=== PATIENT | male | born 1960 | race Caucasian/White ===

== ENCOUNTER → 2019-04-29 | Day surgery (SDC) | payer OTHER ==
[2019-04-24 12:38] LABS: INR 1.27; PROTHROMBIN TIME 16.5 seconds (11.9-14.5)
[2019-04-24 12:39] LABS: PARTIAL THROMBOPLASTIN TIME 45.8 seconds (23.8-35.5)
[~2019-04-29] MED LIST: ABILIFY5 MG PO; AMIODARONE HCL200 MG PO; ASPIRIN EC81 MG PO; COMBIVENT RESPIM4 GM IH; CYMBALTA30 MG PO; FENTANYL CITRATE/PF 100MCG/2 ML INJ ONE; LEVAQUIN500 MG PO; LEVOTHYROXINE50 MCG PO; LISINOPRIL10 MG PO; LOPRESSOR25 MG PO; METOPROLOL TART25 MG PO; MIDAZOLAM HCL 2 MG/2 ML VIAL ONE; OR PHACO EYE KIT ONE; PEPCID20 MG PO; PREOP PHACO EYE KIT ONE; PRISTIQ ER100 MG PO; XARELTO10 MG PO
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
--- OUTSIDE RECORDS SUMMARY | 2019-04-29 11:54 | XMS REPORT ---
Author Author [facility] Address Unknown Phone Unavailable Care Team Providers Care Talkback Host Name Role Phone Jaiden VASQUEZ Unavailable Unavailable Problems This patient has no known problems. Allergies, Adverse Reactions, Alerts This patient has no known allergies or adverse reactions. Medications This patient has no known medications. Results Test Description Test Time Test Comments Text Results Atomic Results Result Comments CHEST SINGLE (PORTABLE) [place] [address] Patient Name: SULEMAN MIRZA MR #: [id number] : 1960 Age/Sex: 57/M Req #: [id number] Adm Physician: Ordered by: DYLAN VASQUEZ MD Report #: [id number] Location: ER Room/Bed: Procedure: [id number] DX/CHEST SINGLE (PORTABLE) Exam Date: 07/13/17 Exam Time: 0825 REPORT STATUS: Signed PROCEDURE: A single AP view of the chest. COMPARISON: Portable chest 12/22/2016. INDICATIONS: SOB, CHEST PAIN FINDINGS: Lines/tubes: Right subclavian tunneled chest port with tip projecting over the expected region of the superior vena cava. Lungs: No parenchymal mass. Bibasilar atelectasis. Pleura: There is no pleural effusion or pneumothorax. Heart and mediastinum: The heart and the mediastinum are unremarkable. Bones: No acute bony abnormality. Degenerative changes of the thoracic spine. IMPRESSION: No acute radiographic abnormality. Dictated by: Linda Burnette M.D. on 07/13/2017 at 9:23 Electronically approved by: Linda Burnette M.D. on 07/13/2017 at 9:23 Dictated By: LINDA BURNETTE MD 2 Transcribed By: KACY on 07/13/17922 COPY TO: DYLAN VASQUEZ MD
--- OUTSIDE RECORDS SUMMARY | 2019-04-29 11:54 | XMS REPORT | Encounter Summary ---
Author Organization Unknown Address [address] [place] [address] Phone [phone] Care Team Providers Care Pie Bakery Laborer Name Role Phone Dr. Catarino Haddad 3 [phone] Reynaldo Florez MD 82 [phone] George Tong MD 111 [phone] Sebas Levin MD 115 [phone] Reason for Visit other - see typed reason Instructions 1. Pre-surgery evaluation 2. Cataract of right eye 3. Atrial fibrillation electrocardiogram 4. Body mass index 20-24 - normal 5. Anxiety diazepam 5 mg tablet 6. Essential hypertension CMP, serum or plasma CBC w/ auto diff TSH, serum or plasma Discussion Note: None recorded. Patient educational handouts: No information available. Plan of Care Reminders Provider Appointments Return to Office on or around 10/08/2019 Mayra Feliciano MD Lab CMP, Serum or Plasma 04/07/2019 [facility] CBC W/ Auto Diff 04/07/2019 [facility] TSH, Serum or Plasma 04/07/2019 [facility] Referral None recorded. Procedures None recorded. Surgeries None recorded. Imaging Electrocardiogram 04/07/2019 [facility] ([facility] Medications Name Start Date diazepam 5 mg [...] BMI Blood Pressure 5 ft 11 in 157 lbs 21.9 kg/m2 137/80 mm[Hg] Lab Results None recorded. Allergies Code Code System Name Reaction Severity Status Onset NKDA Problems Name Status Onset Date Source History of Malignant Neoplasm of Lung Active 10/25/2014 Viral Hepatitis C Active 02/01/2017 Anxiety Active 02/01/2017 Atrial Fibrillation Active 02/01/2017 Hydrocele Active 02/01/2017 History of Tobacco Use Active 02/01/2017 Essential Hypertension Active 06/12/2017 Procedures Date Name Performed by 05/11/2016 Cataract Surgery Complex Information not available 09/10/2014 Cancer Surgery Information not available 03/30/2014 Egd Information not available 03/30/2014 Colonoscopy Information not available 04/07/2019 Electrocardiogram [facility] ([facility]) [facility] [address] [place] [address] (Work Place) Vaccine List Vaccine Type Tdap 06/15/2015 Social History Tobacco Smoking Status Former Smoker (3+ PPD) Past Encounters 04/07/2019 Pre-surgery Evaluation; Cataract of Right Eye; Atrial Fibrillation; Body Mass Index 20-24 - Normal; Anxiety; Essential Hypertension Mayra Feliciano MD: [address] [place] [address], Ph. History of Present Illness Note:59yo male presents for evaluation of pre-op clearance for cataract surgery on right eye with Dr George Tong. Had left eye cataract surgery two years ago. Has been doing well since last visit 01/14/19. Keeping busy taking care of .< div>
</div><div>Since last visit, saw oncologist, Dr Fiore on 03/17/19 for hx of lung cancer. Consult note reviewed. Hx of right-sided lung cancer - had resection of two tumors 10/25/14. Still has ashley-cath. </div><div>
</div><div >Previously:</div><div>Pt continues Cymbalta 30mg bid. Doing well mood-zacarias. Pt gets out most days for exercise with walking & biking.<div>
</div><div> Since last visit, pt saw acquisitions librarian, Dr Florez in Oct & his lisinopril 10mg qd was decreased to half a tablet per day for htn. Home bp in 110/65 usually. Still taking Xarelto for Afib. Rtn visit in 6mo (about Apr 2019).</div> <div>
</div><div>Is planning to move to [place], [place] (better climate) in next year.
</div><div>Here today for medication refill.
<div>
<div> Previously:</div><div>Pt saw psychiatrist, Dr. Isabel Corrigan who agreed with Cymbalta, possible increasing the dose from 60mg to 90mg qd. However, pt would like to keep Cymbalta dose at 30mg bid.
</div><div><div>
</div><div>Pt has switched from smoking to vaping (still with nicotine about 5 cigarettes day). Pt had quit smoking, but lost court case in Jun 2018 & resumed smoking.
</div><div><div><div>
</div><div>PMHx<span style="font-size: 14px;">:</span>< br></div><div><div>Anxiety - has been to counseling in past. Did not tolerate sertraline.</div><div>Atrial fibrillation - followed by Dr lForez, cardiology. Was on amiodarone in past. Had elevated TSH (31) on amiodarone in Jul 2017. Still on Xarelto.</div><div><span style="font-size: 14px;">Htn - currently on lisinopril & metoprolol.</span></div><div>Hydrocele - repair in March 2017, Dr Levin urology.<div>Lung cancer- quit smoking on November 30, 2016 [...] where he got the hep C. </span></div><div>
</div></div></div>< /div></div></div></div></div></div> Review of Systems:ROS as noted in the [...] Adult Exam (male), Upper Respiratory Infection Exam Comprehensive Reported By: Patient Constitutional: General Appearance: in [...] pulse normal Neurologic: Gait and Station: normal gait Skin: Inspection and palpation: no lesions. Inspection and palpation: no rash Lymph Nodes: Cervical no palpable lymph node enlargement
--- OUTSIDE RECORDS SUMMARY | 2019-04-29 11:54 | XMS REPORT | Encounter Summary ---
Author Organization Unknown Address [address] [place] [address] Phone [phone] Care Team Providers Care Clinical Data Analyst Name Role Phone Dr. Catarino Haddad 3 [phone] Reynaldo Florez MD 82 [phone] Sebas Levin MD 115 [phone] Reason for Visit other - see typed reason Instructions 1. Atrial fibrillation 2. Anxiety 3. History of malignant neoplasm of lung 4. Immunization 5. Body mass index 20-24 - normal 6. Insomnia zolpidem 10 mg tablet 7. Essential hypertension Discussion Note: None recorded. Patient educational handouts: No information available. Plan of Care Reminders Provider Appointments Return to Office on or around 01/11/2019 Mayra Feliciano MD Est Patient 01/14/2019 8:45AM Mayra Feliciano MD Lab None recorded. Referral None recorded. Procedures None recorded. Surgeries None recorded. Imaging None recorded. Medications Name Start Date duloxetine 30 mg capsule,delayed release Take one tablet twice a day lisinopril 10 mg tablet Take 1 tablet every day by oral route for 30 days. metoprolol tartrate 25 mg tablet Take 0.5 tablets twice a day by oral route. Xarelto 20 mg tablet Take 1 tablet every day by oral route for 90 days. zolpidem 10 mg tablet Take 1 tablet every day by oral route as needed. Medications Administered None recorded. Vitals Height Weight BMI Blood Pressure 5 ft 11 in 158 lbs 22 kg/m2 136/82 mm[Hg] Lab Results None recorded. Allergies Code [...] 05/11/2016 Cataract Surgery Complex Information not available 03/30/2014 Egd Information not available 03/30/2014 Colonoscopy Information not available Vaccine List Vaccine Type Tdap 06/15/2015 Social History Smoking Status Former Smoker (3+ PPD) Past Encounters 10/15/2018 Atrial Fibrillation; Anxiety; History of Malignant Neoplasm of Lung; Immunization; Body Mass Index 20-24 - Normal; Insomnia; Essential Hypertension Mayra Feliciano MD: [address] [place] [address], Ph. History of Present Illness Note:58yo male presents for one month follow-up visit. Last visit 09/13/18. Since that time, pt saw psychiatrist, Dr. Isabel Corrigan who agreed with Cymbalta, possible increasing the dose from 60mg to 90mg qd. However, pt would like to keep Cymbalta dose at 30mg bid.<div>
</div><div>Was called by [facility] social organization professor & has 'handle' on situation taking care of . </div><div><span style="font-size: 14px;">
</span></div><div><span style="font-size: 14px;">Pt has switched from smoking to vaping (still with </span><span style="font-size: 14px;">nicotine about </span><span style="font-size: 14px;">5 cigarettes day). Pt had quit smoking, but lost court case in Jun & resumed smoking with occas alcohol. Sister is helping him with father's trust. </span><span style="font- size: 14px;">Executor is [id number]-law. </span><div><div>
</div><div>Has appointments with both Dr Florez, cardiology later in Oct for atrial fibril lation & Dr Jay, oncologist for hx of lung cancer in November 2018.</div>< div>
</div><div>PMHx<span style="font-size: 14px;">:</span>
</div><div>< div>Anxiety - has been to counseling in past. Did not tolerate sertraline.</div> <div>Atrial fibrillation - followed by Dr Florez, cardiology. Was on amiodarone in past. Had elevated TSH (31) on amiodarone in Jul 2017. Still on Xarelto.< /div><div><span style="font-size: 14px;">Htn - currently on lisinopril & metoprolol.</span></div><div>Hydrocele - repair in March 2017, Dr Levin urology. <div>Lung cancer- quit smoking on November 30, 2016 after many years of smoking. Was smoking up to 3ppd. Has smoked 38yr. Hx of right-sided lung cancer - had resectionof two tumors 10/25/14. Still has ashley-cath. Followed [...] where he got the hep C. </span></div><div>
</div></div></div></div></div> Review of Systems:ROS as noted in the [...]
[2019-04-29 15:35] VITALS: BP 105/61
== END | disposition home or self-care (01) ==
LOC: OR 11:40
PROVIDERS: ATTEND Ophthalmology
DX: H25.11 Age-related nuclear cataract, right eye (principal); I48.91 Unspecified atrial fibrillation; I10 Essential (primary) hypertension; K74.60 Unspecified cirrhosis of liver; F41.9 Anxiety disorder, unspecified; F17.210 Nicotine dependence, cigarettes, uncomplicated; Z01.812 Encounter for preprocedural laboratory examination; Z79.02 Long term (current) use of antithrombotics/antiplatelets; Z85.118 Personal history of other malignant neoplasm of bronchus and lung; Z86.19 Personal history of other infectious and parasitic diseases
CPT/HCPCS: 36415; 66984; 85610; 85730; J2250; J3010; V2632